=== PATIENT | female | born 1970 | race Caucasian/White ===

== ENCOUNTER 2016-07-25 01:47 | Emergency (ER) | payer SELFPAY ==
[~2016-07-25] VITALS: Ht 154.9 cm; Wt 87.1 kg
[~2016-07-25 01:47] MED LIST: GLUCOPHAGE1000 MG PO; HYDROCHLOROTHIA25 MG PO; LISINOPRIL2.5 MG PO; LOPRESSOR50 MG PO; MOTRIN800 MG PO; ZOCOR10 MG PO
[2016-07-25] MEDS ORDERED: TOUJEO300 U/ML SC (01:55)
[2016-07-25] MEDS ORDERED: VICTOZA6 MG/ML SC (01:56)
[2016-07-25] MEDS ORDERED: Orphenadrine C100 MG PO (02:35)
[2016-07-25] MEDS ORDERED: Motrin,Rufen800 MG PO (02:35)
[2016-07-25 02:44] LABS: BILIRUBIN NEGATIVE (NEGATIVE); BLOOD NEGATIVE (NEGATIVE); CLARITY SL CLOUDY (CLEAR); COLOR YELLOW (YELLOW); GLUCOSE NEGATIVE (NEGATIVE); KETONE TRACE (NEGATIVE); LEUKO ESTERASE NEGATIVE (NEGATIVE); NITRITE NEGATIVE (NEGATIVE); PROTEIN TRACE (NEGATIVE); SPECIFIC GRAVITY 1.025 (1.005-1.030)
[2016-07-25 02:50] LABS: CALCIUM OXALATE CRYSTALS 2+; EPITHELIAL CELLS 25-30
[2016-07-25 02:51] LABS: BACTERIA TRACE; URINE REFLEX COMMENT NO (NO)
[2016-07-25] MEDS ORDERED: NORCO 5-325 TA1 EACH PO (03:22)
== END 2016-07-25 03:30 | disposition home or self-care (01) ==
LOC: ED 01:47
PROVIDERS: Emergency Medicine Emergency Medical Services
DX: M54.40 Lumbago with sciatica, unspecified side (principal); F17.200 Nicotine dependence, unspecified, uncomplicated; Z87.442 Personal history of urinary calculi; Z79.899 Other long term (current) drug therapy

== ENCOUNTER 2016-10-01 20:37 | Emergency (ER) | payer OTHER ==
[~2016-10-01] VITALS: Ht 154.9 cm; Wt 90.7 kg
[~2016-10-01 20:37] MED LIST changes: +Motrin,Rufen800 MG PO; +NORCO 5-325 TA1 EACH PO; +Orphenadrine C100 MG PO; +TOUJEO300 U/ML SC; +VICTOZA6 MG/ML SC
[2016-10-01] MEDS ORDERED: Motrin,Rufen800 MG PO (20:54)
== END 2016-10-01 21:02 | disposition home or self-care (01) ==
LOC: ED 20:37
DX: M25.561 Pain in right knee (principal); M25.562 Pain in left knee; M79.601 Pain in right arm; M79.602 Pain in left arm; F17.200 Nicotine dependence, unspecified, uncomplicated; Z79.4 Long term (current) use of insulin; R51 Headache; R05 Cough

== ENCOUNTER 2016-10-18 15:45 | Emergency (ER) | payer BC, OTHER ==
[~2016-10-18] VITALS: Ht 154.9 cm; Wt 83.0 kg
[2016-10-18] MEDS ORDERED: GABAPENTIN400 MG PO (15:57)
[2016-10-18] MEDS ORDERED: LISINOPRIL2.5 MG PO (15:57)
[2016-10-18] MEDS ORDERED: METFORMIN500 MG PO (15:58)
[2016-10-18] MEDS ORDERED: ZOCOR10 MG PO (15:58)
[2016-10-18] MEDS ORDERED: CYCLOBENZAPRINE5 M3 PO (16:26)
[2016-10-18] MEDS ORDERED: MEDROL DOSEPAK4 MG PO (16:26)
[2016-10-18] MEDS ORDERED: NAPROSYN500 MG PO (16:26)
== END 2016-10-18 16:38 | disposition home or self-care (01) ==
LOC: ED 15:45
DX: G89.29 Other chronic pain (principal); M54.5 Low back pain; Z79.899 Other long term (current) drug therapy

== ENCOUNTER 2016-11-08 23:13 | Emergency (ER) | payer BC, OTHER ==
[~2016-11-08] VITALS: Ht 154.9 cm; Wt 83.0 kg
[~2016-11-08 23:13] MED LIST changes: +CYCLOBENZAPRINE5 M3 PO; +GABAPENTIN400 MG PO; +MEDROL DOSEPAK4 MG PO; +METFORMIN500 MG PO; +NAPROSYN500 MG PO
[2016-11-08] MEDS ORDERED: HYDR12.5C PO (23:36)
[2016-11-08] MEDS ORDERED: CYCLOBENZAPRINE10 MG PO (23:55)
[2016-11-08] MEDS ORDERED: NAPROSYN500 MG PO (23:55)
== END 2016-11-09 00:17 | disposition home or self-care (01) ==
LOC: ED 23:13
DX: G89.29 Other chronic pain (principal); M54.5 Low back pain; M19.90 Unspecified osteoarthritis, unspecified site; F17.200 Nicotine dependence, unspecified, uncomplicated; Z79.899 Other long term (current) drug therapy

== ENCOUNTER 2016-11-14 17:59 | Emergency (ER) | payer BC, OTHER ==
[~2016-11-14] VITALS: Wt 81.6 kg
[~2016-11-14 17:59] MED LIST changes: +CYCLOBENZAPRINE10 MG PO; +HYDR12.5C PO
== END 2016-11-14 21:00 | disposition home or self-care (01) ==
LOC: ED 17:59
DX: M17.12 Unilateral primary osteoarthritis, left knee (principal); F17.200 Nicotine dependence, unspecified, uncomplicated; Z79.899 Other long term (current) drug therapy

== ENCOUNTER 2016-11-29 22:05 | Emergency (ER) | payer BC, OTHER ==
[~2016-11-29] VITALS: Ht 154.9 cm; Wt 81.6 kg
[~2016-11-29 22:05] MED LIST changes: -HYDR12.5C PO; +HYDR25T PO; +LISINOPRIL10 M1 PO; +METFORMIN1000 MG PO; -METFORMIN500 MG PO; +ZOCOR40 MG PO
[2016-11-29] MEDS ORDERED: GOOD NEIGHBOR L10 MG PO (22:17)
[2016-11-29] MEDS ORDERED: CITALOPRAM HYDR40 MG PO (22:17)
[2016-11-29] MEDS ORDERED: CARTIA XT120 MG PO (22:19)
[2016-11-29 22:33] LABS: BILIRUBIN NEGATIVE (NEGATIVE); BLOOD NEGATIVE (NEGATIVE); CLARITY SL CLOUDY (CLEAR); COLOR YELLOW (YELLOW); GLUCOSE NEGATIVE (NEGATIVE); KETONE TRACE (NEGATIVE); LEUKO ESTERASE NEGATIVE (NEGATIVE); NITRITE NEGATIVE (NEGATIVE); PH 5.5 (5.0-9.0); PROTEIN NEGATIVE (NEGATIVE); SPECIFIC GRAVITY >= 1.030 (1.005-1.030); UROBILINOGEN 0.2 E.U./dl (0.2-1.0)
[2016-11-29 22:41] LABS: BACTERIA TRACE; CALCIUM OXALATE CRYSTALS 1+; MUCOUS 1+; URINE REFLEX COMMENT NO (NO); WBC 0-2 wbc/hpf (0-5)
[2016-11-29] MEDS ORDERED: Orphenadrine C100 MG PO (22:49)
[2016-11-29] MEDS ORDERED: TYLENOL325 M1 PO (22:49)
[2016-11-29] MEDS ORDERED: Motrin,Rufen800 MG PO (22:49)
== END 2016-11-29 22:59 | disposition home or self-care (01) ==
LOC: ED 22:05
PROVIDERS: Emergency Medicine Emergency Medical Services
DX: S39.012A Strain of muscle, fascia and tendon of lower back, initial encounter (principal); F17.200 Nicotine dependence, unspecified, uncomplicated; Z79.4 Long term (current) use of insulin; X50.9XXA Other and unspecified overexertion or strenuous movements or postures, initial encounter; Y93.89 Activity, other specified; Y92.9 Unspecified place or not applicable; Y99.9 Unspecified external cause status

== ENCOUNTER → 2017-01-17 | Outpatient (CLI) | payer OTHER ==
[~2017-01-17] MED LIST changes: +CARTIA XT120 MG PO; +CITALOPRAM HYDR40 MG PO; +GOOD NEIGHBOR L10 MG PO; +TYLENOL325 M1 PO
== END | disposition home or self-care (01) ==
LOC: RAD 14:19
DX: M17.12 Unilateral primary osteoarthritis, left knee (principal)

== ENCOUNTER → 2017-01-24 | Outpatient (CLI) | payer BC, OTHER | END | disposition home or self-care (01) | LOC: ORTHO 00:47 | DX: M17.12 Unilateral primary osteoarthritis, left knee (principal) ==

== ENCOUNTER → 2017-03-07 | Outpatient (CLI) | payer OTHER | END | disposition home or self-care (01) | LOC: MRI 13:37 | DX: M23.222 Derangement of posterior horn of medial meniscus due to old tear or injury, left knee (principal); M17.12 Unilateral primary osteoarthritis, left knee ==

== ENCOUNTER 2017-04-23 22:42 | Emergency (ER) | payer OTHER ==
[~2017-04-23] VITALS: Ht 154.9 cm; Wt 89.4 kg
[2017-04-23] MEDS ORDERED: NAPROSYN500 MG PO (22:53)
== END 2017-04-23 23:11 | disposition home or self-care (01) ==
LOC: ED 22:42
DX: M25.532 Pain in left wrist (principal); F17.200 Nicotine dependence, unspecified, uncomplicated; G89.29 Other chronic pain; M54.5 Low back pain; Z79.899 Other long term (current) drug therapy; Z79.4 Long term (current) use of insulin; X50.1XXA Overexertion from prolonged static or awkward postures, initial encounter; Y93.89 Activity, other specified; Y92.89 Other specified places as the place of occurrence of the external cause; Y99.9 Unspecified external cause status

== ENCOUNTER → 2017-05-15 | Outpatient (CLI) | payer OTHER | END | disposition home or self-care (01) | LOC: RAD 14:17 | DX: M25.532 Pain in left wrist (principal); M79.632 Pain in left forearm; M77.9 Enthesopathy, unspecified; R20.2 Paresthesia of skin ==

== ENCOUNTER → 2017-05-28 | Outpatient (CLI) | payer OTHER | END | disposition home or self-care (01) | LOC: MRI 09:32 | DX: M65.4 Radial styloid tenosynovitis [de Quervain] (principal); M67.432 Ganglion, left wrist; S63.592A Other specified sprain of left wrist, initial encounter; X58.XXXA Exposure to other specified factors, initial encounter; Y93.89 Activity, other specified; Y92.89 Other specified places as the place of occurrence of the external cause; Y99.8 Other external cause status ==

== ENCOUNTER → 2017-09-28 | Outpatient (CLI) | payer OTHER | END | disposition home or self-care (01) | LOC: CARD 09:56 | DX: R00.2 Palpitations (principal) ==

== ENCOUNTER 2018-02-12 13:35 | Emergency (ER) | payer OTHER ==
[~2018-02-12] VITALS: Ht 154.9 cm; Wt 77.1 kg
== END 2018-02-12 15:45 | disposition home or self-care (01) ==
LOC: ED 13:35
DX: M25.532 Pain in left wrist (principal); R60.0 Localized edema; F17.200 Nicotine dependence, unspecified, uncomplicated; Z79.4 Long term (current) use of insulin; Z79.84 Long term (current) use of oral hypoglycemic drugs; Z79.899 Other long term (current) drug therapy

== ENCOUNTER → 2018-11-01 | Outpatient (CLI) | payer BC | END | disposition home or self-care (01) | LOC: ORTHO 00:13 | DX: M17.12 Unilateral primary osteoarthritis, left knee (principal) ==